=== PATIENT | female | born 1995 | race African-American/Black ===

== ENCOUNTER 2018-07-17 12:59 | Outpatient (CLI) | payer MEDICAID ==
--- NOTE | 2018-07-17 14:29 | Ultrasound Report ---
ULTRASOUND BIOPHYSICAL PROFILE: History: Decreased movement Technique: Transabdominal ultrasound with Doppler interrogation. 2 - breathing movements 2 - movements 2 - posture and tone 2 - Qualitative amniotic fluid volume 8 - TOTAL SCORE OF POSSIBLE 8 Heart Rate (bpm) 149
[2018-07-17 16:17] VITALS: BP 121/59
== END 2018-07-17 16:35 | disposition home or self-care (01) ==
LOC: TRG 12:59
PROVIDERS: ATTEND Obstetrics & Gynecology
DX: O47.03 False labor before 37 completed weeks of gestation, third trimester (principal); Z3A.35 35 weeks gestation of pregnancy
CPT/HCPCS: 59025; 76819

== ENCOUNTER 2018-08-08 00:01 | Outpatient (CLI) | payer MEDICAID ==
[2018-08-08 00:16] VITALS: BP 118/66
== END 2018-08-08 01:58 | disposition home or self-care (01) ==
LOC: TRG 00:01
PROVIDERS: ATTEND Obstetrics & Gynecology
DX: O47.1 False labor at or after 37 completed weeks of gestation (principal); Z3A.38 38 weeks gestation of pregnancy

== ENCOUNTER 2018-08-13 00:14 | Outpatient (CLI) | payer MEDICAID ==
[2018-08-13] MEDS ORDERED: LACTATED RINGERS 1,000 ML IV ONE (01:19)
[2018-08-13 02:35] VITALS: BP 133/72
--- NOTE | 2018-08-13 07:29 | Progress Note ---
Assessment and Plan A: at 38 6/7 weeks gestation. False labor vs. prodromal labor. Not in active labor. Category 1 heart rate tracing. P: Discharge patient home. Active labor signs and symptoms discussed with pt. Pt. to perform daily movement counting. Patient to keep scheduled follow up appointment at [facility] this week. Subjective - Subjective Date of service: 08/13/18 Principal diagnosis: Contractions, r/o labor Interval history: 23 year old female at 38 6/7 weeks gestation presented to triage complaining of contractions. Patient denies LOF or VB. Patient reports active movement. Patient denies abdominal pain, falls, or trauma. Patient reports: movement normal, contractions, no loss of fluid, no vaginal bleeding Objective - Vital Signs Vital Signs: Vital Signs - 12hr 08/13/18 08/13/18 08/13/18 00:38 00:40 00:43 Temperature 98.4 F Pulse Rate 87 94 H Respiratory 16 Rate Blood Pressure 131/64 O2 Sat by Pulse 97 96 Oximetry 08/13/18 08/13/18 08/13/18 00:48 00:53 00:58 Temperature Pulse Rate 88 81 83 Respiratory Rate Blood Pressure O2 Sat by Pulse 98 97 98 Oximetry 08/13/18 08/13/18 08/13/18 01:03 01:08 01:13 Temperature Pulse Rate 77 94 H 85 Respiratory Rate Blood Pressure O2 Sat by Pulse 98 98 98 Oximetry 08/13/18 08/13/18 08/13/18 01:16 01:18 01:23 Temperature Pulse Rate 93 H 81 83 Respiratory Rate Blood Pressure 134/75 O2 Sat by Pulse 99 100 Oximetry 08/13/18 08/13/18 08/13/18 02:34 02:37 02:42 Temperature Pulse Rate 82 79 85 Respiratory Rate Blood Pressure 133/72 O2 Sat by Pulse 99 99 Oximetry 08/13/18 08/13/18 08/13/18 02:47 02:52 02:57 Temperature Pulse Rate 75 84 76 Respiratory Rate Blood Pressure O2 Sat by Pulse 99 99 99 Oximetry - Exam Abdomen: Present: normal appearance, soft. Absent: distention, tenderness, guarding, rigidity Uterus: Present: normal, fundal height above umbilicus. Absent: tenderness FHR: category 1 Uterine Contraction Monitor Mode: External Cervical Dilatation: 1 (Exam by RN ) Cervical Effacement Percentage: 30 station: -2 Uterine Contraction Pattern: Irregular Uterine Contraction Intensity: Mild Extremities: normal
== END 2018-08-13 03:10 | disposition home or self-care (01) ==
LOC: TRG 00:14
PROVIDERS: ATTEND Obstetrics & Gynecology
DX: O62.9 Abnormality of forces of labor, unspecified (principal); Z3A.38 38 weeks gestation of pregnancy
CPT/HCPCS: 59025; 96360; J7120

== ENCOUNTER 2018-08-19 13:34 | Outpatient (CLI) | payer MEDICAID ==
--- NOTE | 2018-08-19 18:19 | Ultrasound Report ---
PROCEDURE: Ultrasound biophysical profile without nonstress test. TECHNIQUE: Sonographic evaluation for breathing, movement, tone, and amniotic flui d volume was performed. HISTORY: well being . COMPARISONS: None. FINDINGS: FETUS Amniotic fluid volume 2 . breathin . movement: 2 . tone: 2 . Score: 8 of 8 . IMPRESSION: Normal biophysical profile . This document is electronically signed by Dheeraj Charles MD., August 19 2018 07:17:32 PM ET
[2018-08-19 18:25] VITALS: BP 126/59
--- NOTE | 2018-08-19 18:25 | Ultrasound Report ---
PROCEDURE: Obstetrical ultrasound follow-up. TECHNIQUE: Real-time sonography performed for focused follow-up or re-evaluation of each size/ growth parameters and amniotic fluid or re-evaluation of suspected or confirmed abnormality on prior imaging. HISTORY: Check placenta and FABRICE COMPARISONS: Ultrasound biophysical profile 07/17/2018. FINDINGS: There is a single viable fetus in cephalic presentation. Cardiac activity is documented at 146 bpm. T here are no obvious congenital anomalies. The amniotic fluid volume appears normal. The amniotic flui d index measures 9.5 cm. The placenta is posterior in location with no evidence of placenta previa. T he cervix measures 4.4 cm in length. The head was not in an optimal position for measurements. The measured parameters were as follows: Biparietal diameter 9.1 cm, head circumference 33.5 cm , abdominal circumference 35.6 cm, femur length 7.4 cm. The calculated menstrual age is 38 weeks 1 da y. The estimated date of confinement is 09/01/2018. The estimated weight is currently 3557 g. IMPRESSION: Single viable fetus in cephalic presentation with a menstrual age of 38 weeks 1 day. This document is electronically signed by Dheeraj Charles MD., August 19 2018 07:23:55 PM ET
[2018-08-19 19:08] LABS: Bilirubin,Urine NEG (Negative); Blood,Urine NEG (Negative); Color,Urine Yellow (Yellow); Protein,Urine <15 mg/dL mg/dL (Negative); Urobilinogen,Urine < 2.0 mg/dL (<2.0)
[2018-08-19 19:16] LABS: Amphetamine Screen,Urine PRESUMPTIVE NEGATIVE; Benzodiazepines Screen,Urine PRESUMPTIVE NEGATIVE; Cannabinoid Screen,Urine PRESUMPTIVE NEGATIVE; Cocaine Screen,Urine PRESUMPTIVE NEGATIVE; Methadone Screen,Urine PRESUMPTIVE NEGATIVE; Opiate Screen,Urine PRESUMPTIVE NEGATIVE
--- NOTE | 2018-08-19 19:27 | Progress Note ---
Assessment and Plan A: at 39 5/7 weeks gestation. False labor. Reactive NST. Normal BPP and FABRICE. P: Discharge patient home. Advised patient to rest and count movements daily. Warning signs and signs of labor discussed with patient. Advised pt. to follow up at [facility] this week as scheduled and to have IOL scheduled for 41 weeks. Subjective - Subjective Date of service: 08/19/18 Principal diagnosis: at 39 5/7 weeks; R/O labor, vaginal bleeding Interval history: 23 year old female presents to triage at 39 5/7 weeks gestation complaining of contractions and vaginal spotting. She denies leaking of fluid. She reports active movement. She denies any constant abdominal pain. Patient states that she had more vaginal bleeding yesterday and had to change 5 pantyliners but only had a small streak of pink on each one. Patient denies any clots. Patient sees [facility] for her care and she has a follow up visit scheduled with them this week. Patient reports: movement normal, contractions, no loss of fluid, no vaginal bleeding Objective - Vital Signs Vital Signs: Vital Signs - 12hr 08/19/18 08/19/18 08/19/18 14:09 14:14 14:31 Temperature 97.0 F L Pulse Rate 110 H 89 Respiratory 18 Rate Blood Pressure O2 Sat by Pulse 94 93 Oximetry 08/19/18 08/19/18 08/19/18 17:57 18:25 18:32 Temperature 97.7 F Pulse Rate 97 H 96 H 96 H Respiratory 18 Rate Blood Pressure 121/72 126/59 O2 Sat by Pulse Oximetry - Exam Narrative Exam: US shows no signs of placental abruption, BPP 8/8, normal FABRICE. Speculum exam performed and shows white vaginal discharge with scant amount of b loody show near cervix. No clots seen and no active bleeding seen. Abdomen: Present: normal appearance, soft. Absent: distention, tenderness, guarding, rigidity Uterus: Present: normal, fundal height above umbilicus. Absent: tenderness FHR: category 1 Uterine Contraction Monitor Mode: External Cervical Dilatation: 2 Cervical Effacement Percentage: 80 station: -1 Uterine Contraction Pattern: Irregular Uterine Contraction Intensity: Mild Extremities: normal - Labs Labs: Laboratory Results - last 24 hr 08/19/18 08/19/18 18:32 18:32 Urine Color Yellow Urine Turbidity Clear Urine pH 7.0 Ur Specific [place] 1.017 Urine Protein <15 mg/dl Urine Glucose (UA) Neg Urine Ketones Neg Urine Blood Neg Urine Nitrite Neg Urine Bilirubin Neg Urine Urobilinogen < 2.0 Ur Leukocyte Esterase Neg Urine WBC (Auto) 2.0 Urine RBC (Auto) 1.0 U Epithel Cells (Auto) 1.0 Urine Opiates Screen Presumptive negative Urine Methadone Screen Presumptive negative Ur Barbiturates Screen Presumptive negative Ur Phencyclidine Scrn Presumptive negative Ur Amphetamines Screen Presumptive negative U Benzodiazepines Scrn Presumptive negative Urine Cocaine Screen Presumptive negative U Marijuana (THC) Screen Presumptive negative Drugs of Abuse Note Disclamer
== END 2018-08-19 18:45 | disposition home or self-care (01) ==
LOC: TRG 13:34 → LD 14:08 → TRG 18:45
PROVIDERS: ATTEND Obstetrics & Gynecology
DX: O47.1 False labor at or after 37 completed weeks of gestation (principal); Z3A.39 39 weeks gestation of pregnancy
CPT/HCPCS: 59025; 76816; 76819; 80307; 81001

== ENCOUNTER 2018-08-21 00:19 | Outpatient (CLI) | payer MEDICAID ==
[2018-08-21 00:52] VITALS: BP 130/71
[2018-08-21] MEDS ORDERED: VISTARIL PO ONE (01:44)
== END 2018-08-21 02:12 | disposition home or self-care (01) ==
LOC: TRG 00:19
PROVIDERS: ATTEND Obstetrics & Gynecology
DX: O47.1 False labor at or after 37 completed weeks of gestation (principal); Z3A.40 40 weeks gestation of pregnancy
CPT/HCPCS: 59025; 76816; 76819; 80307; 81001; Q0177

== ENCOUNTER 2018-08-21 06:28 | Outpatient (CLI) | payer MEDICAID ==
[2018-08-21 07:27] VITALS: BP 133/75
== END 2018-08-21 12:46 | disposition home or self-care (01) ==
LOC: TRG 06:28
PROVIDERS: ATTEND Obstetrics & Gynecology
DX: O47.1 False labor at or after 37 completed weeks of gestation (principal); Z3A.40 40 weeks gestation of pregnancy

== ENCOUNTER 2018-08-21 17:27 | Inpatient (IN) | payer MEDICAID ==
[2018-08-21] MEDS ORDERED: LACTATED RINGERS 1,000 ML ONE (17:58)
[2018-08-21] MEDS ORDERED: STADOL IV PRN (18:01)
[2018-08-21] MEDS ORDERED: SUBLIMAZE IV PRN (18:01)
[2018-08-21] MEDS ORDERED: BRETHINE IVP PRN (18:01)
[2018-08-21] MEDS ORDERED: BRETHINE SUB-Q PRN (18:01)
[2018-08-21] MEDS ORDERED: XYLOCAINE 2% INFILTRATI ONE ×2 (18:01→21:04)
[2018-08-21] MEDS ORDERED: MINERAL OIL PO PRN (18:01)
[2018-08-21 18:37] LABS: Hematocrit 37.5 % (30.3-42.9); Hemoglobin 12.7 gm/dl (10.1-14.3); Mean Corpuscular HGB Conc 34 % (30-34); Mean Corpuscular Volume 93 fl (79-97); Red Blood Count 4.06 M/mm3 (3.65-5.03); Red Cell Distribution Width 13.5 % (13.2-15.2)
--- NOTE | 2018-08-21 18:38 | History and Physical Report ---
History of Present Illness Date of examination: 08/21/18 Date of admission: 08/21/18 17:52 Chief complaint: Active labor History of present illness: 23 yo at 40 wks gestation, pt of [facility] initiated care at 20 gestation. She had been previously evaluated at [facility] five times over the past 4 days with last visit earlier this morning around noon, in early labor with an unchanged cervix at 3/60/-1. She returned to [facility] around 1730 with regular painful ctxs, back pain and small amt of bloody show. Reports +FM. Denies LOF. Her has been complicated by scoliosis, rash on BUE, and Vit D deficiency. Labs: O+, antibody negative; rubella immune; VDRL negative; HBsAg negative; HIV negative; Gc/Chlamydia negative; 1 hr gtt-134; GBS negative. Past History Past Medical History: other (Scoliosis) Past Surgical History: no surgical history Family/Genetic History: other (Liver Neoplasm - father age 45) Social history: , lives with family, full code. denies: smoking, alcohol abuse, prescription drug abuse, IV drug use - Obstetrical History : 1 Medications and Allergies Allergies Allergy/AdvReac Type Severity Reaction Status Date / Time No Known Allergies Allergy Verified 08/19/18 14:27 Home Medications Medication Instructions Recorded Confirmed Last Taken Type Vit-Fe Fumar-FA [ 1 tab PO QDAY 08/13/18 08/19/18 08/19/18 01:00 History Vitamin] 1 Active Meds: Active Medications Butorphanol Tartrate (Stadol) 1 mg IV Q2H PRN PRN Reason: Pain, Moderate (4-6) Ephedrine Sulfate (Ephedrine Sulfate) 10 mg IV Q2M PRN PRN Reason: Hypotension Fentanyl (Sublimaze) 100 mcg IV Q2H PRN PRN Reason: Labor Pain Lactated Ringer's (Lactated Ringers) 1,000 mls @ 125 mls/hr IV DIRECT KYLIE Oxytocin/Sodium Chloride (Pitocin/Ns 20 Unit/1000ml Drip) 20 units in 1,000 mls @ 125 mls/hr IV DIRECT KYLIE Lactated Ringer's (Lactated Ringers) 1,000 mls @ 125 mls/hr IV DIRECT KYLIE Mineral Oil (Mineral Oil) 30 ml PO QHS PRN PRN Reason: Constipation Terbutaline Sulfate (Brethine) 0.25 mg SUB-Q ONCE PRN PRN Reason: Hyperstimulation/Hypertonicity Terbutaline Sulfate (Brethine) 0.25 mg IVP ONCE PRN PRN Reason: Hyperstimulation/Hypertonicity Review of Systems All systems: negative Gastrointestinal: other (painful ctxs) Musculoskeletal: low back pain - Physical Exam Breasts: Positive: deferred Cardiovascular: Regular rate Lungs: Positive: Normal air movement Abdomen: Positive: other (gravid) Genitourinary (Female): Positive: normal external genitalia Vagina: Positive: normal moisture Uterus: Positive: other (gravid, S=D) Extremities: Positive: normal Deep Tendon Reflex Grade: Normal +2 - Obstetrical FHR: category 1 Uterine Contraction Monitor Mode: External Cervical Dilatation: 6 Cervical Effacement Percentage: 90 station: -1 Uterine Contraction Frequency (min): 3-6 Uterine Contraction Pattern: Irregular Uterine Tone Measurement Phase: Resting Uterine Contraction Intensity: Moderate Results Result Diagrams: 08/21/18 18:00 All other labs normal. Assessment and Plan - Patient Problems (1) 40 weeks gestation of Current Visit: Yes Status: Acute (2) Active labor at term Current Visit: Yes Status: Acute Plan to address problem: Admit to L & D with routine orders Epidural as desired Anticipate (3) Scoliosis Current Visit: Yes Status: Acute
[2018-08-21] MEDS ORDERED: NARCAN 2 MG/2 ML IV PRN (18:47)
--- NOTE | 2018-08-21 18:47 | Anesthesia Consultation ---
Anesthesia Consult and Med Hx Date of service: 08/21/18 - Airway Anesthetic Teeth Evaluation: Good ROM Head & Neck: Adequate Mental/Hyoid Distance: Adequate Mallampati Class: Class II Intubation Access Assessment: Good - Pulmonary Exam CTA: Yes - Cardiac Exam Cardiac Exam: RRR - Pre-Operative Health Status ASA Pre-Surgery Classification: ASA2 Proposed Anesthetic Plan: Epidural - Pre-Anesthesia Comment Pre-Anesthesia Comments: pt has mild scoliosis, - Pulmonary Hx Asthma: No - Cardiovascular System Hx Hypertension: No - Central Nervous System Hx Seizures: No Hx Psychiatric Problems: No - Endocrine Hx Renal Disease: No Hx Hypothyroidism: No Hx Hyperthyroidism: No - Hematic Hx Anemia: No Hx Sickle Cell Disease: No - Other Systems Hx Alcohol Use: No
[2018-08-21 18:48] LABS: Platelet Count 260 K/mm3 (140-440)
[2018-08-21] MEDS ORDERED: MARCAINE 0.25% INFILTRATI ONE (18:53)
[2018-08-21] MEDS ORDERED: LACTATED RINGERS 1,000 ML IV SCH ×2 (19:00)
[2018-08-21] MEDS ORDERED: fentaNYL-BUPIV 2 MCG/ML-0.125% 200 MCG/100 ML BAG EPIDURAL SCH (19:00)
[2018-08-21] MEDS ORDERED: TUCKS PAD TP PRN (21:40)
[2018-08-21] MEDS ORDERED: LANSINOH TP PRN (21:40)
[2018-08-21] MEDS ORDERED: PHENERGAN PO PRN (21:40)
[2018-08-21] MEDS ORDERED: BENADRYL PO PRN (21:40)
[2018-08-21] MEDS ORDERED: NORCO 5/325 PO PRN (21:40)
[2018-08-21] MEDS ORDERED: ZOFRAN IV PRN (21:40)
[2018-08-21] MEDS ORDERED: MILK OF MAGNESIA PO PRN (21:40)
[2018-08-21] MEDS ORDERED: DULCOLAX PR PRN (21:40)
--- NOTE | 2018-08-21 21:58 | Procedure Note ---
OB Delivery Note - Delivery Date of Delivery: 08/21/18 (2056) Surgeon: TIFFANY ENNIS (CNM) Estimated blood loss: other (250 mls) - Vaginal Delivery presentation: vertex Delivery position: OA (Direct) Intrapartum events: meconium Delivery induction: none Delivery augmentation: rupture of membranes (1848) Delivery monitor: external FHT, external uterine Route of delivery: Delivery placenta: spontaneous (2058) Delivery cord: 3 umbilical vessels Episiotomy: none Delivery laceration: 2nd degree (perineal) Delivery repair: vicryl (3.0, CT-1) Anesthesia: none Delivery comments: of crying viable infant, placed directly on maternal abdomen. Cord double clamped and cut by mother of pt, after cessation of pulsation. Spontaneous delivery of placenta, [place], disposed per hospital policy. Uterus firm at U-1. Second degree perineal laceration, repaired with 3.[address]-1 suture, hemostasis maintained. Mother and baby safe, stable and bonding well. - Infant A at 1 minute: 8 at 5 minutes: 9 Infant Gender: Female (Weight: 6 lbs 14 ozs (3109 gms), 18 inches)
[2018-08-21] MEDS ORDERED: SODIUM CHLORIDE FLUSH SYRINGE 10 ML IV NR (22:00)
[2018-08-21] MEDS: PITOCin/NS 20 UNIT/1000ML DRIP 20 UNITS/1,000 ML BAG IV SCH ×2 (22:10→22:11)
[2018-08-21] MEDS: IBUPROFEN PO SCH (22:34)
[2018-08-22] MEDS: IBUPROFEN PO SCH ×3 (06:32→23:56)
[2018-08-22 10:05] LABS: Hematocrit 35.8 % (30.3-42.9); Hemoglobin 12.2 gm/dl (10.1-14.3)
--- NOTE | 2018-08-22 10:51 | Progress Note ---
Assessment and Plan A: PP Day #1 Stable P: Follow Routine Orders D/C home in the AM RTO in 6 Weeks Subjective - Subjective Date of service: 08/22/18 Patient reports: appetite normal, voiding normally, pain well controlled, flatus, ambulating normally [place]: doing well, bottle feeding Objective - Vital Signs Latest vital signs: Vital Signs Temp Pulse Resp BP BP Pulse Ox 08/22/18 07:18 98.3 F 107 H 18 107/70 08/22/18 04:20 98.4 F 95 H 16 117/67 99 08/21/18 23:10 98.7 F 95 H 14 128/76 98 08/21/18 22:19 105 H 141/68 08/21/18 22:05 111 H 134/70 08/21/18 21:49 116 H 119/56 08/21/18 21:36 113 H 136/60 08/21/18 21:35 122 H 180/79 08/21/18 21:20 111 H 133/62 08/21/18 20:49 139 H 137/72 08/21/18 20:06 133 H 148/87 08/21/18 19:50 123 H 129/65 08/21/18 19:25 107 H 135/89 08/21/18 18:55 117 H 178/76 Intake and Output 08/21/18 08/22/18 08/22/18 22:59 06:59 14:59 Intake Total 2.083 480 480 Output Total 1150 Balance 2.083 -670 480 Intake: IV 2.083 PITOCin/NS 20 UNIT/1000ML 2.083 DRIP 20 units In 1,000 ml @ 125 mls/hr IV DIRECT KYLIE Rx#:[id number] Oral 480 480 Output: Urine 1150 Void 1150 Other: Total, Intake Amount 480 480 Total, Output Amount 600 # Voids Void 1 Weight 80.286 kg Estimated Blood Loss 250 - Exam Breasts: Present: normal Cardiovascular: Present: Regular rate Lungs: Present: Clear to auscultation, Normal air movement Abdomen: Present: normal appearance, soft, normal bowel sounds Uterus: Present: normal, firm, fundal height below umbilicus Extremities: Present: normal - Labs Labs: Abnormal lab results 08/21/18 Range/Units 18:00 WBC 16.8 H (4.5-11.0) K/mm3
--- NOTE | 2018-08-22 10:52 | Discharge Summary ---
Providers - Providers Date of Admission: 08/21/18 17:52 Date of discharge: 08/23/18 Attending physician: BENITA PEREZ MD Primary care physician: BENTIA PEREZ MD Hospitalization Reason for admission: active labor Delivery: Episiotomy: none Laceration: 2nd degree Other procedures: none complications: none Discharge diagnosis: IUP at term delivered [place] baby: female Condition at discharge: Good Disposition: DC-01 TO HOME OR SELFCARE Plan - Provider Discharge Summary Activity: routine, no sex for 6 weeks, no heavy lifting 4 weeks, no strenuous exercise Diet: routine Instructions: routine Additional instructions: [] Smoking cessation referral if applicable(refer to patient education folder for contact #) [] Refer to [facility] Booklet Call your doctor immediately for: * Fever > 100.5 * Heavy vaginal bleeding ( >1 pad per hour) * Severe persistent headache * Shortness of breath * Reddened, hot, painful area to leg or breast * Drainage or odor from incision. * Keep incision clean and dry at all times and follow doctor's instructions regarding bathing/showering - Follow up plan Follow up: BENITA PEREZ MD [Primary Care Provider] - 6 Weeks
[2018-08-22] MEDS ORDERED: DERMOPLAST TP ONE (14:56)
[2018-08-22] MEDS ORDERED: DERMOPLAST TP PRN (19:24)
[2018-08-23] MEDS: IBUPROFEN PO SCH ×2 (05:58→13:23)
[2018-08-23 08:34] VITALS: BP 119/69
== END 2018-08-23 13:45 | disposition home or self-care (01) | DRG 775 ==
LOC: TRG 17:27 → LD 17:52 → OB 23:01
PROVIDERS: ADMIT Obstetrics & Gynecology; ATTEND Obstetrics & Gynecology
PROC: 10E0XZZ Delivery of Products of Conception, External Approach (ICD-10-PCS; principal; 2018-08-21)
PROC: 0KQM0ZZ Repair Perineum Muscle, Open Approach (ICD-10-PCS; 2018-08-21)
DX: O77.0 Labor and delivery complicated by meconium in amniotic fluid (principal); Z3A.40 40 weeks gestation of pregnancy; Z37.0 Single live birth; M41.9 Scoliosis, unspecified; O70.1 Second degree perineal laceration during delivery; O75.89 Other specified complications of labor and delivery
CPT/HCPCS: 36415; 59025; 76816; 76819; 80307; 81001; 85014; 85018; 85027; 86592; 86850; 86900; 86901; G0378; A6250; J0595; J2590; J7120; Q0177